=== PATIENT | female | born 1970 | race Caucasian/White ===

== ENCOUNTER 2017-06-11 19:23 | Inpatient (IN) | payer BC ==
[~2017-06-11] VITALS: Ht 167.6 cm; Wt 90.5 kg
[2017-06-11 20:32] LABS: HEMATOCRIT 40.2 % (36.0-46.0); MCH 30.7 PG (29.0-34.0); MCHC 32.6 G/DL (30.0-36.0); MCV 94.1 FL (83-99); MEAN PLAT.VOLUME 9.8 uM^3 (9.5-12.4); PLATELET COUNT 239 K/uL (156-360); RBC DIS.WIDTH-CV 13.8 % (11.8-14.6); RBC DIS.WIDTH-SD 47.7 % (39-53); RED BLOOD COUNT 4.27 M/uL (3.80-5.20); WHITE BLOOD COUNT 6.2 K/uL (4.1-10.2)
[2017-06-11 20:39] LABS: INTER. NORMALIZED RATIO 0.9; PROTHROMBIN TIME 9.6 SEC (10.2-12.9)
[2017-06-11 20:40] LABS: CHLORIDE 105 mEq/L (99-109); POTASSIUM 4.5 mEq/L (3.7-5.4); SODIUM 140 mEq/L (136-147)
[2017-06-11 20:42] LABS: GLUCOSE 91 mg/dL (70-99); PTT 26.6 SEC (25-37)
[2017-06-11 20:43] LABS: ANION GAP 10 MEQ/L (2-14)
[2017-06-11 20:44] LABS: TOTAL BILIRUBIN 0.3 mg/dL (0.0-1.0)
[2017-06-11 20:45] LABS: ALKALINE PHOSPHATASE 116 IU/L (3-129)
[2017-06-11 20:46] LABS: GFR ESTIMATE (CALCULATED) > 59 mL/min/
[2017-06-11 20:47] LABS: UREA NITROGEN (BUN) 14 mg/dL (9-23)
[2017-06-11] MEDS ORDERED: ZOFRAN4 MG PO (23:47)
[2017-06-11] MEDS ORDERED: NEXIUM40 MG PO (23:48)
[2017-06-11] MEDS ORDERED: VOLTAREN 1% GE100 GM TP (23:48)
[2017-06-11] MEDS ORDERED: AMERGE2.5 MG PO (23:48)
[2017-06-11] MEDS ORDERED: TIZANIDINE HCL4 MG PO (23:49)
[2017-06-11] MEDS ORDERED: LEXAPRO20 MG PO (23:49)
[2017-06-11] MEDS ORDERED: HYSINGLA ER20 MG PO (23:49)
[2017-06-11] MEDS ORDERED: CLONAZEPAM1 MG PO (23:49)
[2017-06-11] MEDS ORDERED: GABAPENTIN600 MG PO (23:49)
[2017-06-11] MEDS ORDERED: FUROSEMIDE20 MG PO (23:49)
[2017-06-11] MEDS ORDERED: CORGARD20 MG PO (23:49)
[2017-06-11] MEDS ORDERED: BUTALB-ACETAMI1 EAC2 PO (23:50)
[2017-06-11] MEDS ORDERED: ATORVASTATIN CA20 MG PO (23:50)
[2017-06-12 00:11] LABS: TROP-I INTERPRETATION NEGATIVE
[2017-06-12 00:19] LABS: TROPONIN-I < 0.01 ng/mL (0.0-0.30)
[2017-06-12 01:40] VITALS: BP 118/56
[2017-06-12 05:30] VITALS: BP 100/57
[2017-06-12 07:30] VITALS: BP 108/56
[2017-06-12 09:11] LABS: ANION GAP 10 MEQ/L (2-14); CHLORIDE 107 MEQ/L (99-109); POTASSIUM 4.2 MEQ/L (3.7-5.4); SAMPLE HEMOLYSIS CHECK 0; SAMPLE ICTERIC CHECK 0; SAMPLE LIPEMIA CHECK 0; SODIUM 141 MEQ/L (136-147)
[2017-06-12 09:13] LABS: HEMATOCRIT 37.5 % (36.0-46.0); MCH 30.5 PG (29.0-34.0); MCHC 31.7 G/DL (30.0-36.0); MCV 96.2 FL (83-99); MEAN PLAT.VOLUME 10.4 uM^3 (9.5-12.4); PLATELET COUNT 207 K/uL (156-360); RBC DIS.WIDTH-CV 13.9 % (11.8-14.6); RBC DIS.WIDTH-SD 48.9 % (39-53); WHITE BLOOD COUNT 6.5 K/uL (4.1-10.2)
[2017-06-12 09:16] LABS: GFR ESTIMATE (CALCULATED) > 59 mL/min/; GLUCOSE 87 mg/dL (70-99); UREA NITROGEN (BUN) 11 mg/dL (9-23)
[2017-06-12 11:30] VITALS: BP 97/55
[2017-06-12 13:34] LABS: TROP-I INTERPRETATION NEGATIVE; TROPONIN-I 0.02 ng/mL (0.0-0.30)
[2017-06-12 15:30] VITALS: BP 113/58
[2017-06-12 19:30] VITALS: BP 115/59
[2017-06-13 00:05] VITALS: BP 109/56
[2017-06-13 05:09] LABS: HEMATOCRIT 36.2 % (36.0-46.0); MCH 32.5 PG (29.0-34.0); MCV 95.5 FL (83-99); PLATELET COUNT 230 K/uL (156-360); RBC DIS.WIDTH-CV 14.1 % (11.8-14.6); RBC DIS.WIDTH-SD 49.5 % (39-53); RED BLOOD COUNT 3.79 M/uL (3.80-5.20); WHITE BLOOD COUNT 5.1 K/uL (4.1-10.2)
[2017-06-13 05:20] VITALS: BP 98/46
[2017-06-13 05:41] LABS: ANION GAP 9 MEQ/L (2-14); CHLORIDE 107 MEQ/L (99-109); GFR ESTIMATE (CALCULATED) > 59 mL/min/; GLUCOSE 102 mg/dL (70-99); POTASSIUM 4.2 MEQ/L (3.7-5.4); SAMPLE HEMOLYSIS CHECK 0; SAMPLE ICTERIC CHECK 0; SAMPLE LIPEMIA CHECK 0; SODIUM 140 MEQ/L (136-147); UREA NITROGEN (BUN) 18 mg/dL (9-23)
[2017-06-13 07:00] VITALS: BP 91/50
[2017-06-13] MEDS ORDERED: ELIQUIS5 MG PO (10:42)
[2017-06-13 11:00] VITALS: BP 103/50
[2017-06-13 16:20] VITALS: BP 104/54
[2017-06-13 19:10] VITALS: BP 113/60
[2017-06-14] VITALS (7 sets, daily range): BP systolic 89–109; BP diastolic 47–55
[2017-06-15 04:57] VITALS: BP 109/54
[2017-06-15 06:21] LABS: MCH 30.8 PG (29.0-34.0); MCV 96.2 FL (83-99); MEAN PLAT.VOLUME 9.7 uM^3 (9.5-12.4); PLATELET COUNT 234 K/uL (156-360); RBC DIS.WIDTH-CV 13.9 % (11.8-14.6); RBC DIS.WIDTH-SD 49.5 % (39-53); RED BLOOD COUNT 3.64 M/uL (3.80-5.20); WHITE BLOOD COUNT 5.4 K/uL (4.1-10.2)
[2017-06-15 07:00] VITALS: BP 115/68
[2017-06-15 12:00] VITALS: BP 99/51
[2017-06-15] MEDS ORDERED: TRAMADOL HCL50 MG PO (15:05)
[2017-06-15] MEDS ORDERED: ELIQUIS5 MG PO (15:10)
== END 2017-06-15 19:56 | disposition home or self-care (01) | DRG 176 ==
LOC: EME 19:23 → 4EAST 06-12 00:34 → EDOF 06-12 00:34 → ENRESERV 06-12 00:36 → 4EAST 06-12 01:31
PROVIDERS: Hospitalist; Internal Medicine; Nurse Practitioner Family
DX: I26.99 Other pulmonary embolism without acute cor pulmonale (principal); J98.11 Atelectasis; E72.12 Methylenetetrahydrofolate reductase deficiency; G43.909 Migraine, unspecified, not intractable, without status migrainosus; G89.29 Other chronic pain; J32.2 Chronic ethmoidal sinusitis; J43.9 Emphysema, unspecified; J84.10 Pulmonary fibrosis, unspecified; K20.9 Esophagitis, unspecified; M48.06 Spinal stenosis, lumbar region; M54.16 Radiculopathy, lumbar region; F17.210 Nicotine dependence, cigarettes, uncomplicated; R91.1 Solitary pulmonary nodule; I34.0 Nonrheumatic mitral (valve) insufficiency; I36.1 Nonrheumatic tricuspid (valve) insufficiency; I37.1 Nonrheumatic pulmonary valve insufficiency; R00.1 Bradycardia, unspecified; M25.511 Pain in right shoulder; Z88.0 Allergy status to penicillin; Z88.2 Allergy status to sulfonamides; Z79.01 Long term (current) use of anticoagulants; Z79.82 Long term (current) use of aspirin; Z86.711 Personal history of pulmonary embolism; Z86.718 Personal history of other venous thrombosis and embolism; Z86.73 Personal history of transient ischemic attack (TIA), and cerebral infarction without residual deficits; Z87.11 Personal history of peptic ulcer disease; Z88.5 Allergy status to narcotic agent; Z88.6 Allergy status to analgesic agent; Z80.1 Family history of malignant neoplasm of trachea, bronchus and lung
CPT/HCPCS: 70450; 71020; 71275; 73610; 80048; 80053; 82272; 84484; 85027; 85379; 85610; 85730; 93005; 93306; 93970; 99281; 99285; J1885; J2405; J7030

== ENCOUNTER 2017-06-22 13:29 | Emergency (ER) | payer BC ==
[~2017-06-22] VITALS: Ht 167.6 cm; Wt 85.9 kg
[~2017-06-22 13:29] MED LIST: AMERGE2.5 MG PO; ATORVASTATIN CA20 MG PO; BUTALB-ACETAMI1 EAC2 PO; CLONAZEPAM1 MG PO; CORGARD20 MG PO; ELIQUIS5 MG PO; FUROSEMIDE20 MG PO; GABAPENTIN600 MG PO; HYSINGLA ER20 MG PO; LEXAPRO20 MG PO; NEXIUM40 MG PO; TIZANIDINE HCL4 MG PO; TRAMADOL HCL50 MG PO; VOLTAREN 1% GE100 GM TP; ZOFRAN4 MG PO
[2017-06-22 14:15] LABS: BASOPHIL COUNT 0.1 K/uL (0-0.1); EOSINOPHIL (%) 3.7 % (0-5); EOSINOPHIL COUNT 0.2 K/uL (0-0.3); IMMATURE GRANULOCYTE (%) 0.3 % (0.0-0.7); INSTRUMENT ABS NEUTROPHIL CT 3.3 K/uL; LYMPHOCYTE COUNT 2.1 K/uL (1.0-2.8); MCH 30.8 PG (29.0-34.0); MCHC 32.7 G/DL (30.0-36.0); MCV 94.1 FL (83-99); MEAN PLAT.VOLUME 9.9 uM^3 (9.5-12.4); MONOCYTE (%) 8.5 % (3-12); MONOCYTE COUNT 0.5 K/uL (0-0.8); NEUTROPHIL (%) 52.9 % (45-76); NEUTROPHIL COUNT 3.3 K/uL (1.8-6.4); PLATELET COUNT 264 K/uL (156-360); RBC DIS.WIDTH-CV 13.7 % (11.8-14.6); RBC DIS.WIDTH-SD 47.3 % (39-53); RED BLOOD COUNT 3.93 M/uL (3.80-5.20); WHITE BLOOD COUNT 6.1 K/uL (4.1-10.2)
[2017-06-22 14:21] LABS: INTER. NORMALIZED RATIO 1.3
[2017-06-22 14:23] LABS: CHLORIDE 107 mEq/L (99-109); POTASSIUM 4.3 mEq/L (3.7-5.4); SODIUM 140 mEq/L (136-147)
[2017-06-22 14:25] LABS: GLUCOSE 85 mg/dL (70-99)
[2017-06-22 14:27] LABS: ANION GAP 11 MEQ/L (2-14); TOTAL BILIRUBIN 0.2 mg/dL (0.0-1.0)
[2017-06-22 14:29] LABS: ALKALINE PHOSPHATASE 112 IU/L (3-129); GFR ESTIMATE (CALCULATED) > 59 mL/min/
[2017-06-22 14:30] LABS: UREA NITROGEN (BUN) 19 mg/dL (9-23)
[2017-06-22 14:38] LABS: QUANTITATIVE HCG < 4.0 MIU/ML
[2017-06-22 14:47] LABS: PROTHROMBIN TIME 14.1 SEC (10.2-12.9)
[2017-06-22 16:27] LABS: ADD MIUA? NO; BILIRUBIN NEGATIVE; BLOOD NEGATIVE; COLOR YELLOW ((YELLOW)); GLUCOSE (STRIP) NEGATIVE; KETONES NEGATIVE; LEUKOCYTES NEGATIVE; NITRITE NEGATIVE; PROTEIN (STRIP) NEGATIVE; SPECIFIC GRAVITY 1.014 (1.000-1.030); UCUL ADDED? NO; UROBILINOGEN 0.2 MG/DL (0.2-1.0)
[2017-06-22 20:38] LABS: TROP-I INTERPRETATION NEGATIVE; TROPONIN-I < 0.01 ng/mL (0.0-0.30)
[2017-06-22 21:30] VITALS: BP 115/56
== END 2017-06-22 21:32 | disposition home or self-care (01) ==
LOC: EME 13:29
PROVIDERS: Emergency Medicine; Physician Assistant
DX: G43.109 Migraine with aura, not intractable, without status migrainosus (principal); R06.02 Shortness of breath; Z86.711 Personal history of pulmonary embolism; Z86.718 Personal history of other venous thrombosis and embolism; I10 Essential (primary) hypertension; Z86.73 Personal history of transient ischemic attack (TIA), and cerebral infarction without residual deficits
CPT/HCPCS: 70450; 71275; 80053; 81003; 84484; 84702; 85025; 85610; 93005; 93970; J0780; J1100; J1200; J7120

== ENCOUNTER 2017-06-25 18:05 | Emergency (ER) | payer BC ==
[~2017-06-25] VITALS: Ht 167.6 cm; Wt 88.0 kg
[2017-06-25 18:12] VITALS: BP 122/66
[2017-06-25 19:41] LABS: HEMATOCRIT 37.1 % (36.0-46.0); MCHC 32.9 G/DL (30.0-36.0); MCV 94.4 FL (83-99); MEAN PLAT.VOLUME 10.4 uM^3 (9.5-12.4); PLATELET COUNT 197 K/uL (156-360); RBC DIS.WIDTH-CV 13.7 % (11.8-14.6); RBC DIS.WIDTH-SD 47.6 % (39-53); RED BLOOD COUNT 3.93 M/uL (3.80-5.20); WHITE BLOOD COUNT 8.3 K/uL (4.1-10.2)
[2017-06-25 19:51] LABS: CHLORIDE 106 mEq/L (99-109); POTASSIUM 4.7 mEq/L (3.7-5.4); SODIUM 139 mEq/L (136-147)
[2017-06-25 19:52] LABS: GLUCOSE 100 mg/dL (70-99)
[2017-06-25 19:54] LABS: ANION GAP 13 MEQ/L (2-14)
[2017-06-25 19:56] LABS: GFR ESTIMATE (CALCULATED) > 59 mL/min/
[2017-06-25 19:57] LABS: UREA NITROGEN (BUN) 17 mg/dL (9-23)
[2017-06-25 21:11] LABS: TROP-I INTERPRETATION NEGATIVE
== END 2017-06-25 22:09 | disposition home or self-care (01) ==
LOC: EME 18:05
DX: R51 Headache (principal); Z86.711 Personal history of pulmonary embolism; Z86.718 Personal history of other venous thrombosis and embolism; Z79.01 Long term (current) use of anticoagulants; I10 Essential (primary) hypertension
CPT/HCPCS: 71020; 80048; 84484; 85027; 93005; 99281; 99284; J0780; J1200; J2405; J7030

== ENCOUNTER 2017-07-17 18:37 | Emergency (ER) | payer BC ==
[~2017-07-17] VITALS: Ht 167.6 cm; Wt 86.1 kg
[2017-07-17 19:16] LABS: HEMATOCRIT 38.5 % (36.0-46.0); MCH 31.1 PG (29.0-34.0); MCHC 33.2 G/DL (30.0-36.0); MCV 93.4 FL (83-99); MEAN PLAT.VOLUME 10.2 uM^3 (9.5-12.4); PLATELET COUNT 212 K/uL (156-360); RBC DIS.WIDTH-CV 13.3 % (11.8-14.6); RBC DIS.WIDTH-SD 45.6 % (39-53); RED BLOOD COUNT 4.12 M/uL (3.80-5.20); WHITE BLOOD COUNT 3.9 K/uL (4.1-10.2)
[2017-07-17 19:26] LABS: CHLORIDE 106 mEq/L (99-109); POTASSIUM 4.4 mEq/L (3.7-5.4); SODIUM 140 mEq/L (136-147)
[2017-07-17 19:28] LABS: GLUCOSE 92 mg/dL (70-99)
[2017-07-17 19:30] LABS: ANION GAP 9 MEQ/L (2-14)
[2017-07-17 19:32] LABS: INTER. NORMALIZED RATIO 1.1; PROTHROMBIN TIME 12.2 SEC (10.2-12.9)
[2017-07-17 19:32] LABS: GFR ESTIMATE (CALCULATED) > 59 mL/min/
[2017-07-17 19:33] LABS: UREA NITROGEN (BUN) 12 mg/dL (9-23)
[2017-07-17 19:34] LABS: PTT 28.8 SEC (25-37)
[2017-07-17 19:40] LABS: TROP-I INTERPRETATION NEGATIVE; TROPONIN-I < 0.01 ng/mL (0.0-0.30)
[2017-07-17 22:56] LABS: TROP-I INTERPRETATION NEGATIVE; TROPONIN-I < 0.01 ng/mL (0.0-0.30)
[2017-07-17 23:19] VITALS: BP 125/78
== END 2017-07-17 23:33 | disposition home or self-care (01) ==
LOC: EME 18:37
PROVIDERS: Emergency Medicine
DX: R07.9 Chest pain, unspecified (principal); Z86.718 Personal history of other venous thrombosis and embolism; Z86.711 Personal history of pulmonary embolism; I10 Essential (primary) hypertension; Z79.01 Long term (current) use of anticoagulants; Z86.73 Personal history of transient ischemic attack (TIA), and cerebral infarction without residual deficits; Z88.0 Allergy status to penicillin; Z88.8 Allergy status to other drugs, medicaments and biological substances
CPT/HCPCS: 71020; 71275; 80048; 83735; 84484; 85027; 85610; 85730; 93005; 99281; 99284